=== PATIENT | female | born 1990 | race African-American/Black ===

== ENCOUNTER 2018-05-31 23:59 | Emergency (ER) | payer MEDICAID, OTHER ==
[~2018-05-31] VITALS: Ht 162.6 cm; Wt 82.0 kg
[2018-06-01] MEDS ORDERED: HYDROCODONE/ACETAMINOPHEN 5/325MG TABLET PO ONE (01:15)
[2018-06-01] MEDS ORDERED: ONDANSETRON 4MG ODT PO ONE (04:00)
[2018-06-01] MEDS ORDERED: MORPHINE SULFATE 10 MG/ML CPJ IM ONE (04:00)
[2018-06-01 04:16] LABS: HEMATOCRIT. 33.7 % (36.0-48.0); HEMOGLOBIN. 11.4 g/dL (12.0-16.0); MEAN CORPUSCULAR HEMOGLOBIN 34.3 pg (28.0-32.0); MEAN CORPUSCULAR VOLUME 101.6 fL (81.0-99.0); MEAN PLATELET VOLUME 8.3 fl (7.4-10.4); PLATELET 269 x1000/uL (130-400); RED BLOOD CELL COUNT 3.32 mill/uL (4.2-5.4); RED CELL DISTRIBUTION WIDTH 12.2 % (11.6-14.6)
[2018-06-01 04:21] LABS: CHLORIDE 108 mEq/L (98-107)
[2018-06-01 04:24] LABS: HCG SCREEN NEGATIVE
[2018-06-01 04:37] LABS: PLATELET ESTIMATE NORMAL
[2018-06-01 08:37] LABS: INR 1.1; PROTHROMBIN TIME 10.6 sec (9.1-11.1)
[2018-06-01 10:59] VITALS: BP 120/71
== END 2018-06-01 11:19 | disposition short-term general hospital (02) ==
LOC: ER 23:59 → EDBEDREQ 06-01 05:35 → EDBEDREQTM 06-01 05:35 → ENRESERV 06-01 07:06 → CANRESERV 06-01 07:06 → CANBEDREQ 06-01 07:10 → ER 06-01 11:19
DX: S42.491A Other displaced fracture of lower end of right humerus, initial encounter for closed fracture (principal); Y93.01 Activity, walking, marching and hiking; W01.198A Fall on same level from slipping, tripping and stumbling with subsequent striking against other object, initial encounter; Y92.89 Other specified places as the place of occurrence of the external cause
CPT/HCPCS: 29105; 36415; 71045; 73030; 73060; 73070; 80053; 84703; 85025; 85610; 93005; 96372; 99285; J2270; Q0162; A4565